=== PATIENT | female | born 1955 | race Caucasian/White ===

== ENCOUNTER 2017-07-24 23:08 | Emergency (ER) | payer OTHER ==
[~2017-07-24] VITALS: Ht 167.6 cm; Wt 105.2 kg
[2017-07-25] MEDS ORDERED: TRIAMCINOLONE A15 G2 TP (00:18)
[2017-07-25] MEDS ORDERED: BACTRIM,SEPT1 TABLET PO (00:18)
[2017-07-25] MEDS ORDERED: KEFLEX500 MG PO (00:18)
[2017-07-25] MEDS ORDERED: BACTROBAN OINTM22 GM TP (00:18)
[2017-07-25 00:27] VITALS: BP 144/82
== END 2017-07-25 00:28 | disposition home or self-care (01) ==
LOC: EME 23:08
DX: S20.469A Insect bite (nonvenomous) of unspecified back wall of thorax, initial encounter (principal); L03.312 Cellulitis of back [any part except buttock and flank]; W57.XXXA Bitten or stung by nonvenomous insect and other nonvenomous arthropods, initial encounter; Z90.49 Acquired absence of other specified parts of digestive tract; Z90.710 Acquired absence of both cervix and uterus
CPT/HCPCS: 99281; 99283